=== PATIENT | female | born 1955 | race Caucasian/White ===

== ENCOUNTER 2019-11-02 09:36 | Emergency (ER) | payer BC ==
[~2019-11-02] VITALS: Ht 162.6 cm; Wt 60.8 kg
[2019-11-02 09:40] VITALS: Ht 162.6 cm; Wt 60.8 kg
[2019-11-02 10:32] VITALS: BP 148/90
== END 2019-11-02 10:32 | disposition home or self-care (01) ==
LOC: ED 09:36
DX: S52.501A Unspecified fracture of the lower end of right radius, initial encounter for closed fracture (principal); W18.30XA Fall on same level, unspecified, initial encounter; Y93.89 Activity, other specified; Y92.89 Other specified places as the place of occurrence of the external cause; Y99.8 Other external cause status
CPT/HCPCS: J7030